=== PATIENT | female | born 1985 | race Caucasian/White ===

== ENCOUNTER → 2020-05-08 | Outpatient (CLI) | payer OTHER ==
[~2020-05-08] MED LIST: AMOXICILLIN875 MG PO; AZITHROMYCIN250 MG PO; CYCLOBENZAPRINE10 MG PO; DELSYM30 MG/5 ML PO; EC-NAPROSYN500 MG PO; EXPECTORANT200 MG PO; FLEXERIL 10 MG10 MG PO; FLONASE 0.05% N16 GM; HYDROXYCHLOROQ200 MG PO; IBU800 MG PO; IBUPROFEN600 MG PO; NORFLEX 100 MG100 MG PO; PREDNISONE 50 M50 MG PO; PREDNISONE20 MG PO; ROBAXIN 750 MG750 MG PO; SUDAFED 60 MG T60 MG PO; TAMIFLU 75 MG C75 MG PO; Voltaren Gel 1 % TOP; ZOFRAN ODT 4 MG4 MG PO; ZOFRAN4 MG PO
== END ==
LOC: KOH-I 04-28 14:00
DX: M51.36 Other intervertebral disc degeneration, lumbar region (principal); M51.26 Other intervertebral disc displacement, lumbar region; M48.061 Spinal stenosis, lumbar region without neurogenic claudication; M48.07 Spinal stenosis, lumbosacral region; M51.27 Other intervertebral disc displacement, lumbosacral region
CPT/HCPCS: 72131

== ENCOUNTER 2020-08-18 18:53 | Emergency (ER) | payer OTHER ==
[~2020-08-18] VITALS: Ht 170.2 cm; Wt 104.3 kg
[~2020-08-18 18:53] MED LIST changes: -AZITHROMYCIN250 MG PO; -HYDROXYCHLOROQ200 MG PO; -PREDNISONE20 MG PO
[2020-08-18] MEDS ORDERED: AZITHROMYCIN250 MG PO (20:28)
[2020-08-18] MEDS ORDERED: PREDNISONE20 MG PO (20:28)
[2020-08-18] MEDS ORDERED: HYDROXYCHLOROQ200 MG PO (20:33)
== END 2020-08-18 23:00 | disposition home or self-care (01) ==
LOC: ER1 18:53
DX: U07.1 COVID-19 (principal); E66.01 Morbid (severe) obesity due to excess calories; Z88.1 Allergy status to other antibiotic agents; Z79.899 Other long term (current) drug therapy; F17.200 Nicotine dependence, unspecified, uncomplicated
CPT/HCPCS: 0240U; 71045; 87081; 87880; 99283; M0245

== ENCOUNTER 2020-11-07 11:15 | Emergency (ER) | payer OTHER ==
[~2020-11-07 11:15] MED LIST changes: +AZITHROMYCIN250 MG PO; +HYDROXYCHLOROQ200 MG PO; +PREDNISONE20 MG PO
[2020-11-07 12:17] LABS: HEMOGLOBIN 14.3 gm/dl (12.3-15.3); RED BLOOD COUNT 4.35 M/UL (4.00-5.10); WHITE BLOOD COUNT 10.3 K/UL (4.5-11.0)
[2020-11-07 12:51] LABS: BUN/CREATININE RATIO 11 (0-10)
== END 2020-11-07 14:46 | disposition left against medical advice (07) ==
LOC: ER1 11:15
PROVIDERS: Emergency Medicine; Physician Assistant
DX: R11.2 Nausea with vomiting, unspecified (principal); F17.210 Nicotine dependence, cigarettes, uncomplicated; Z88.1 Allergy status to other antibiotic agents
CPT/HCPCS: 80053; 80307; 81001; 83605; 85025; 99284